=== PATIENT | female | born 1980 | race Caucasian/White ===

== ENCOUNTER 2024-03-26 14:48 | Emergency (ER) | payer BC, SELFPAY ==
[2024-03-26 14:49] VITALS: BP 123/83; PULSE 85; RESP 16; TEMP 35.7; O2SAT 100; BMI 26.7
[2024-03-26] MEDS: Acetaminophen 500 MG Tablet 1000 MG PO (17:37)
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
== END 2024-03-26 18:54 | disposition home or self-care (01) ==
PROVIDERS: Emergency Provider Emergency Medicine; Visit Provider Emergency Medicine
DX: S16.1XXA Strain of muscle, fascia and tendon at neck level, initial encounter (principal); V89.2XXA Person injured in unspecified motor-vehicle accident, traffic, initial encounter
CPT/HCPCS: 72040; 99282